=== PATIENT | male | born 1955 ===

== ENCOUNTER 2024-01-27 12:19 | Inpatient (IN) | payer OTHER, MEDICARE, BC ==
[2024-01-27 12:42] LABS: BASOPHILS ABSOLUTE AUTO 0.04 K/uL (0.02-0.10); BASOPHILS PERCENT AUTO 0.4 % (0.0-0.5); EOSINOPHILS ABSOLUTE AUTO 0.03 K/uL (0.04-0.40); EOSINOPHILS PERCENT AUTO 0.3 % (1.0-5.0); HEMATOCRIT 39.7 % (40.0-54.0); HEMOGLOBIN 13.3 g/dL (13.0-18.0); LYMPHOCYTES PERCENT AUTO 17.7 % (20.0-40.0); MEAN CORPUSCULAR HGB CONC 33.5 g/dL (31.0-35.0); MEAN CORPUSCULAR VOLUME 87 fL (76-96); MEAN PLATELET VOLUME 11.1 fL (6.0-10.0); MONOCYTES ABSOLUTE AUTO 0.53 K/uL (0.20-0.80); MONOCYTES PERCENT AUTO 5.9 % (3.0-10.0); NEUTROPHILS ABSOLUTE AUTO 6.85 K/uL (2.00-7.50); NEUTROPHILS PERCENT AUTO 75.7 % (45.0-70.0); PLATELET COUNT,PLT 203 K/uL (150-400); RED BLOOD CELL COUNT 4.59 M/uL (4.50-6.50); RED CELL DISTRIBUTION WIDTH 15.1 % (11.0-16.0); WHITE BLOOD CELL COUNT,WBC 9.1 K/uL (4.0-11.0)
[2024-01-27 12:56] LABS: A/G RATIO 0.9 (0.8-2.0); ALBUMIN 3.3 g/dL (3.4-5.0); ANION GAP 15.6 mmol/L (5.0-15.0); BILIRUBIN TOTAL 0.9 mg/dL (0.0-1.0); BUN/CREATININE RATIO 21.9 (6-25); CALCIUM 8.7 mg/dL (8.5-10.1); CARBON DIOXIDE,CO2 25.4 mmol/L (21.0-32.0); CREATININE 1.28 mg/dL (0.70-1.30); EST CRCL DRUG DOSING (CG) 54.18 mL/min; PROTEIN TOTAL,TP 7.2 g/dL (6.4-8.2)
[2024-01-27] MEDS: Bacitracin Oint 1 GM U/D Packet TOP ONE ×2 (13:02→13:03)
[2024-01-27 13:26] LABS: APPEARANCE,URINE CLEAR (CLEAR); BILIRUBIN,URINE NEGATIVE (NEGATIVE); COLOR,URINE YELLOW; GLUCOSE,URINE NEGATIVE (NEGATIVE); KETONES,URINE NEGATIVE (NEGATIVE); LEUKOCYTE ESTERASE,URINE NEGATIVE (NEGATIVE); NITRITE,URINE NEGATIVE (NEGATIVE); OCCULT BLOOD,URINE MODERATE (NEGATIVE); PH,URINE 5.5 (5.0-8.0); PROTEIN,URINE >=300 mg/dL (NEGATIVE); UROBILINOGEN,URINE 0.2 E.U./dL (0.2-1.0)
[2024-01-27 13:27] LABS: AMPHETAMINES SCREEN, URINE NEGATIVE (NEGATIVE); BARBITURATE SCREEN,URINE NEGATIVE (NEGATIVE); BENZODIAZEPINES SCREEN,URINE NEGATIVE (NEGATIVE); METHADONE SCREEN, URINE NEGATIVE (NEGATIVE); METHAMPHETAMINES SCREEN, URINE NEGATIVE (NEGATIVE); OXYCODONE SCREEN,URINE NEGATIVE (NEGATIVE); THC SCREEN,URINE 50 NG/ML NEGATIVE (NEGATIVE)
[2024-01-27 13:27] LABS: RBC,URINE 0-5 /HPF; WBC,URINE NOT SEEN /HPF
[2024-01-27] MEDS ORDERED: Acetaminophen 500 MG Tab PO PRN (14:36)
[2024-01-27] MEDS: Acetaminophen/HYDROcodone 325-5 MG Tab ONE (14:49)
[2024-01-27] MEDS: Acetaminophen/HYDROcodone 325-5 MG Tab PO PRN (14:50)
[2024-01-27] MEDS ORDERED: Sodium Chloride 0.9% 10 ML Syringe FLUSH PRN (18:19)
[2024-01-27] MEDS: Lisinopril 10 MG Tab PO SCH (19:30)
[2024-01-27] MEDS: amLODIPine 5 MG Tab PO SCH (19:30)
[2024-01-28] MEDS: Lisinopril 20 MG Tab ONE (05:01)
[2024-01-28] MEDS: amLODIPine 2.5 MG Tab PO SCH (07:36)
== END 2024-01-28 15:37 | disposition home or self-care (01) | DRG 552 ==
LOC: LB.ED 12:19 → LB.MS 14:00
PROVIDERS: ADMIT Surgery; ATTEND Surgery
DX: S22.089A Unspecified fracture of T11-T12 vertebra, initial encounter for closed fracture (principal); S32.029A Unspecified fracture of second lumbar vertebra, initial encounter for closed fracture; S32.019A Unspecified fracture of first lumbar vertebra, initial encounter for closed fracture; S32.039A Unspecified fracture of third lumbar vertebra, initial encounter for closed fracture; I10 Essential (primary) hypertension; Z79.899 Other long term (current) drug therapy; V89.2XXA Person injured in unspecified motor-vehicle accident, traffic, initial encounter
CPT/HCPCS: 36415; 70450; 71250; 72125; 74176; 80053; 80307; 81001; 85025; 97161-GP; A0425; A0429; A9270-GY; U0002